=== PATIENT | male | born 1995 | race Caucasian/White ===

== ENCOUNTER 2018-12-05 04:12 | Emergency (ER) | payer BC ==
[2018-12-05] MEDS ORDERED: Proparacaine 0.5% Opth 15 ML BOT ONE (04:41)
[2018-12-05] MEDS ORDERED: Fluorescein Opthalmic Strip ONE (04:41)
[2018-12-05] MEDS ORDERED: Erythromycin Base 0.5% Oint 1 GM TUBE ONE (05:16)
== END 2018-12-05 05:21 | disposition home or self-care (01) ==
LOC: ERS 04:12
DX: T15.01XA Foreign body in cornea, right eye, initial encounter (principal); F17.210 Nicotine dependence, cigarettes, uncomplicated
CPT/HCPCS: 65222